=== PATIENT | female | born 1995 | race Hispanic/Latino ===

== ENCOUNTER 2017-03-18 01:57 | Emergency (ER) | payer OTHER ==
[~2017-03-18] VITALS: Ht 162.6 cm; Wt 86.4 kg
[2017-03-18 02:00] VITALS: BP 145/97; PULSE 88; RESP 16; O2SAT 97
--- NOTE | 2017-03-18 02:20 | ED.REPORT ---
HPI-Abd Pain F Under 40 Date of Service Mar 18, 2017 ED Provider: Zeus Marin MD Pt is a 21 y.o. female who presents to the ED c/o worsening LLQ pain onset yesterday. Pt reports associated dysuria and hematuria. She denies nausea, vomiting, constipation, diarrhea, and back pain. She reports a recent menses, ending last week per pt. She denies a hx of UTI and kidney infection. Nursing Notes Stated Complaint: LEFT SIDE ABDOMINAL PAIN Chief Complaint: Female Abdominal Pain Nursing Notes Reviewed: Yes Allergies: Coded Allergies: No Known Allergies (Unverified , 03/18/17) Scheduled Cephalexin (Keflex) 500 Mg Capsule 500 MG PO QID Scheduled PRN Phenazopyridine (Pyridium) 200 Mg Tablet 200 MG PO TID PRN PRN dysuria General Time Seen by MD: 02:19 Chief Complaint Abdominal pain Hx Obtained From: Patient Arrived By: Walk-in Sudden in Onset?: Yes Onset Occurred: Yesterday Symptom Duration: Since onset Location: : LLQ Quality: Painful Radiation: : Does not radiate Severity: Current: Severe Recent Healthcare: No recent doctor visit, No recent hospitalization Similar Sx Previous: No Past Medical History Past Medical History Denies Past Surgical History Denies Social History Other Social History: Good social support Ambulatory Status Independent Review of Systems GI: Reports: Abdominal pain, Denies: Constipation, Diarrhea, Nausea, Vomiting Female: Reports: Dysuria, Hematuria Musculoskeletal: Denies: Back pain Complete sys rev & neg: except as marked. Physical Exam Initial Vital Signs Vital Signs (First) Date Time Temp Pulse Resp B/P Pulse Ox O2 Delivery O2 Flow Rate FiO2 03/18/17 02:00 36.7 88 16 145/97 97 Room Air Initial VS: Reviewed Head / Eyes: Atraumatic, Normocephalic, PERRL Extremities: Vascular intact, Neuro intact Skin: Warm, Dry, No cyanosis Neurologic: Alert, Oriented, Nonfocal Psychiatric: Mood/affect normal, Behavior normal, Normal thought content General/Constitutional: Awake, Alert, Well appearing, Well developed, Well hydrated, Well nourished, Not toxic appearing Behavior: Positive: Tearful Respiratory / Chest: Atraumatic, Breath sounds NL, Breath sounds = bilat, No respiratory distress Cardiovascular: Heart rate NL, Regular rhythm, Heart sounds NL, Cap refill not delayed, Peripheral circulation NL Abdomen: Atraumatic, Soft, Non-tender, No guarding, No rebound, No distention Back: Atraumatic, Non-tender Interpretation & Diagnostics Lab Results Interpretation Result Diagram: 03/18/17 0230 03/18/17 0230 Test 03/18/17 02:30 03/18/17 02:44 White Blood Count 18.3th/mm3 (3.8-10.1) Red Blood Count 4.79mil/mm3 (3.90-5.20) Hemoglobin 14.3g/dL (12.0-15.6) Hematocrit 43.0% (35.0-46.0) Mean Corpuscular Volume 89.8fL (81-100) Mean Corpuscular Hemoglobin 29.9pg (27.0-35.0) Mean Corpuscular Hemoglobin Concent 33.3% (32.0-37.0) Red Cell Distribution Width 12.8% (12.3-15.4) Platelet Count 284bil/L (150-400) Neutrophils (%) (Auto) 70.4% (40-74) Lymphocytes (%) (Auto) 23.0% (14-46) Monocytes (%) (Auto) 5.5% (4-12) Eosinophils (%) (Auto) 0.7% (0-5) Basophils (%) (Auto) 0.1% (0-3) Sodium Level 142mEq/L (134-144) Potassium Level 4.0mEq/L (3.5-5.2) Chloride Level 104mEq/L (97-108) Carbon Dioxide Level 24mmol/L (18-29) Blood Urea Nitrogen 15mg/dL (6-20) Creatinine 0.84mg/dL (0.57-1.00) Estimat Glomerular Filtration Rate 123mL/min (>59) Glucose Level 109mg/dL (60-99) Calcium Level 9.7mg/dL (8.5-10.1) Magnesium Level 1.8mg/dL (1.6-2.6) Total Bilirubin 0.4mg/dL (0.0-1.2) Aspartate Amino Transf (AST/SGOT) 14U/L (0-50) Alanine Aminotransferase (ALT/SGPT) 15U/L (0-32) Alkaline Phosphatase 86U/L (25-150) Total Protein 7.8g/dL (6.4-8.4) Albumin 4.1g/dL (3.4-5.0) Lipase 32U/L (13-60) Urine Color Yellow (YELLOW) Urine Appearance Cloudy (CLEAR,HAZY) Urine pH 6.5 (5.0-8.0) Urine Specific [place] 1.020 (1.003-1.035) Urine Protein 100mg/dL (NEG,TRACE) Urine Glucose (UA) Negativemg/dL (NEGATIVE) Urine Ketones Negativemg/dL (NEGATIVE) Urine Occult Blood Large (NEGATIVE) Urine Nitrite Positive (NEGATIVE) Urine Bilirubin Negative (NEGATIVE) Urine Urobilinogen Normalmg/dL (NORMAL) Urine Leukocyte Esterase Moderate (NEGATIVE) Urine RBC 11-50/hpf (0-2) Urine WBC >50/hpf (0-5) Urine Epithelial Cells Occasional/hpf (NONE-MOD) Urine Crystals None seen (NONE SEEN) Urine Bacteria Few/hpf (NONE-FEW) Urine Hyaline Casts None/lpf (NONE) Urine Granular Casts None seen (NONE SEEN) Urine Waxy Casts None seen (NONE SEEN) Urine Red Blood Cell Casts None seen (NONE SEEN) Urine White Blood Cell Casts None seen (NONE SEEN) Urine Mucus None seen (None Seen) Urine Trichomonas None seen (NONE SEEN) Urine Yeast None (NONE SEEN) Urine Culture Reflexed Indicated Hold Urine Received (Received) Re-Eval/Medical Decision Med Decision/Clinical Course Med Decision/Clinical Course: 21-year-old presents with about a day of worsening pain in her left lower quadrant abdomen, and dysuria frequency and urgency. Her urine is grossly infected with packed white cells. Labs otherwise basically unremarkable. Exam is basically benign with no peritoneal signs no flank pain to percussion. No indication for advanced imaging at this point area doubt stone or other obstructive issue. Improved here with a single 0.5 mg dose of Dilaudid and some Toradol. Rocephin 2 g IV given along with 2 L of fluid, discharged now with Keflex 4 times a day ongoing fluid ibuprofen and Pyridium. Source of Hx: Old records Re-Evaluation/Progress : Time of Eval: 03:29 Re-Evaluation/Progress Note: Pt rechecked and is feeling improved. Discussed lab results and plan for discharge, pt understands and agrees with plan. Counseled Regarding: Diagnosis, Lab results, Need for follow-up, When/why to return to ED Discharge & Departure Primary Impression: UTI (urinary tract infection) Urinary tract infection type: site unspecified Hematuria presence: with hematuria Qualified Code: N39.0 - Urinary tract infection, site not specified Disposition: Home Discharge Condition All VS Reviewed: Yes Condition: Improved Patient Instructions: Urinary Tract Infection in Women (ED) Additional Instructions: Begin Keflex four times daily. Drink plenty of fluids and stay well-hydrated Pyridium 200 mg three times daily as needed for discomfort Ibuprofen additionally if needed for discomfort Follow-up with your doctor in the office. Referrals: Sana Green (PCP) Andreea Attestation Portions of this note were transcribed by Samm Xie. I, Dr. Marin personally performed the history, physical exam and medical decision-making; I reviewed and confirmed the accuracy of the information in the transcribed note. Signed by: Andreea Smith, 03/18/17 and 0416 copies to: Sana Green Christopher W MD Mar 18, 2017 02:20 SAMM XIE Mar 18, 2017 02:27
[2017-03-18] MEDS ORDERED: Ketorolac 15 mg/mL Inj IVPUSH ONE (02:30)
[2017-03-18] MEDS ORDERED: HYDROmorphone 0.5 mg/0.5 mL iSecure Syringe IVPUSH ONE (02:30)
[2017-03-18] MEDS ORDERED: Pantoprazole 4 mg/mL 10 mL Inj IVPUSH ONE (02:30)
[2017-03-18] MEDS ORDERED: Ondansetron 2 mg/mL 2 mL Inj IVPUSH ONE (02:30)
[2017-03-18 02:44] LABS: BASOPHILS % (AUTO) 0.1 % (0-3); EOSINOPHILS % (AUTO) 0.7 % (0-5); MONOCYTES % (AUTO) 5.5 % (4-12); Mean Corpuscular Hemoglobin 29.9 pg (27.0-35.0); Mean Corpuscular Volume 89.8 fL (81-100); NEUTROPHILS % (AUTO) 70.4 % (40-74); Platelet Count 284 bil/L (150-400)
[2017-03-18] MEDS: 0.9% Sodium Chloride 1,000 ML IV SCH ×2 (02:44→03:38)
[2017-03-18 03:01] LABS: Magnesium 1.8 mg/dL (1.6-2.6)
[2017-03-18 03:08] LABS: APPEARANCE,URINE CLOUDY (CLEAR,HAZY); COLOR,URINE YELLOW (YELLOW); OCCULT BLOOD,URINE LARGE (NEGATIVE); PH,URINE 6.5 (5.0-8.0); UROBILINOGEN,URINE NORMAL (NORMAL)
[2017-03-18 03:10] VITALS: O2SAT 100
[2017-03-18] MEDS ORDERED: HYDROmorphone 1 mg/mL Inj IVPUSH PRN (03:25)
[2017-03-18] MEDS ORDERED: cefTRIAXone Inj 2,000 MG in Dextrose 5% Minibag Plus 50 ML IV ONE (03:30)
[2017-03-18] MEDS ORDERED: 0.9% Sodium Chloride 1,000 ML IV ONE (03:35)
[2017-03-18] MEDS ORDERED: Phenazopyridine 97.5 mg Tablet PO ONE (03:35)
[2017-03-18] MEDS ORDERED: CEPH-512 PO (03:57)
[2017-03-18] MEDS ORDERED: PHEN-684 PO (03:57)
[2017-03-18 04:13] VITALS: BP 106/63; PULSE 77; RESP 14; O2SAT 100
== END 2017-03-18 04:13 | disposition home or self-care (01) ==
LOC: SED 01:57
DX: N39.0 Urinary tract infection, site not specified (principal); R31.9 Hematuria, unspecified; B96.20 Unspecified Escherichia coli [E. coli] as the cause of diseases classified elsewhere
CPT/HCPCS: 36415; 80053; 81000; 81025; 83690; 83735; 85025; 87086; 87088; 87186; 96361; 96365; 96375; 99284; J0696; J1170; J1885; J2405; J7030; S0164